=== PATIENT | female | born 1990 | race Hispanic/Latino ===

== ENCOUNTER 2020-11-04 07:41 | Outpatient (CLI) | payer OTHER ==
[2020-11-04 08:26] VITALS: BP 121/82
== END 2020-11-04 11:00 | disposition home or self-care (01) ==
LOC: TRG 07:41 → APU 07:43 → TRG 11:00
DX: O47.1 False labor at or after 37 completed weeks of gestation (principal); Z3A.37 37 weeks gestation of pregnancy
CPT/HCPCS: 59025

== ENCOUNTER 2020-11-09 14:14 | Inpatient (IN) | payer OTHER ==
[2020-11-09] MEDS ORDERED: ePHEDrine SULFATE 50 MG/1 ML INJ IV PRN (15:29)
[2020-11-09] MEDS ORDERED: TERBUTALINE 1 MG/1 ML INJ SUB-Q PRN (15:29)
[2020-11-09] MEDS ORDERED: MINERAL OIL 30 ML ORAL LIQD PO PRN (15:29)
[2020-11-09] MEDS ORDERED: OXYTOCIN DRIP 30,000 MILLIUNITS/500 ML BAG IV ONE (15:55)
[2020-11-09] MEDS: LACTATED RINGERS 1,000 ML IV SCH ×2 (16:00→22:51)
[2020-11-09] MEDS ORDERED: OXYTOCIN DRIP 30 UNITS/500 ML BAG IV SCH ×2 (16:00→17:00)
[2020-11-09] MEDS ORDERED: LIDOCAINE (2%) 20 MG/1 ML VIAL 20 ML MDV INFILTRATI ONE ×2 (16:29→23:06)
[2020-11-09 16:48] LABS: Hematocrit 36.9 % (30.3-42.9); Hemoglobin 12.1 gm/dl (10.1-14.3); Mean Corpuscular HGB Conc 33 % (30-34); Mean Corpuscular Volume 85 fl (79-97); Platelet Count 207 K/mm3 (140-440); Red Blood Count 4.32 M/mm3 (3.65-5.03); Red Cell Distribution Width 13.9 % (13.2-15.2)
[2020-11-09] MEDS ORDERED: AMPICILLIN/NS 2 GM/100 ML 2 GM/100 ML BAG IV ONE (17:00)
--- NOTE | 2020-11-09 19:33 | History and Physical Report ---
History of Present Illness Date of examination: 11/09/20 Date of admission: 11/09/20 14:15 Chief complaint: Pt with c/o uc times several hours History of present illness: 30 y/o white female presents to [facility] @ 38.4 wks with c/o uc times several hours. She denies LOF or VB and admits to adq FM. Pt initiated her pnc @ 9wks 5d @ [facility] office. She was co managed by [facility] r/t obesity and placenta previa which resolved. She has a hx of neurotic depression and anxiety.Pt was found to be in labor and was admitted to L&D for delivery. Labs: A pos AB screen neg Rubella -Immune RPR - NR HIV- Neg PLT 228 H&H 13.7/40.5% 1 HR GTT-105 VDRL- NR GBS- pos Past History Past Medical History: other (neurotic depression, anxiety) Past Surgical History: cholecystectomy, tonsillectomy Family/Genetic History: diabetes Social history: single, full code - Obstetrical History Expected Date of Delivery: 11/20/20 Actual Gestation: 38 Week(s) 3 Day(s) : 6 Para: 3 Hx # Term Pregnancies: 3 Number of Pregnancies: 0 Spontaneous Abortions: 2 Induced : 0 Number of Living Children: 3 Medications and Allergies Allergies Allergy/AdvReac Type Severity Reaction Status Date / Time No Known Allergies Allergy Unverified 11/04/20 10:46 Active Meds: Active Medications Ephedrine Sulfate (Ephedrine Sulfate 50 Mg/1 Ml Inj) 10 mg IV Q2M PRN PRN Reason: Hypotension Oxytocin/Sodium Chloride (Pitocin/Ns 30 Unit/500ml) 30 units in 500 mls @ 2 mls/hr IV TITR LOUISA; Protocol Lactated Ringer's (Lactated Ringers) 1,000 mls @ 125 mls/hr IV DIRECT LOUISA Last Admin: 11/09/20 16:00 Dose: 125 mls/hr Documented by: Oxytocin/Sodium Chloride (Pitocin/Ns 30 Unit/500ml) 30 units in 500 mls @ 40 mls/hr IV TITR LOUISA; Protocol Ampicillin Sodium (Ampicillin/Ns 1 Gm/50 Ml) 1 gm in 50 mls @ 100 mls/hr IV Q4H LOUISA; Protocol Mineral Oil (Mineral Oil 30 Ml Oral Liqd) 30 ml PO QHS PRN PRN Reason: Constipation Terbutaline Sulfate (Terbutaline 1 Mg/1 Ml Inj) 0.25 mg SUB-Q ONCE PRN PRN Reason: Hyperstimulation/Hypertonicity Review of Systems All systems: negative Eyes: deferred Ears, nose, mouth and throat: deferred Breasts: normal - Vital Signs Vital signs: Vital Signs Pulse BP 110 H 146/90 11/09/20 14:36 11/09/20 14:36 Temp Pulse Resp BP Pulse Ox 98.3 F 77 16 126/73 11/09/20 15:20 11/09/20 19:02 11/09/20 15:20 11/09/20 19:02 - Physical Exam Breasts: Positive: normal Abdomen: Positive: normal appearance, soft, normal bowel sounds, other (gravid) Genitourinary (Female): Positive: normal external genitalia, normal perenium Vulva: both: normal Vagina: Positive: normal moisture Uterus: Positive: normal size, normal contour Adnexa: both: normal Anus/Rectum: Positive: normal perianal skin Extremities: Positive: normal - Obstetrical FHR: auscultation normal, category 1 Uterine Contraction Monitor Mode: External Cervical Dilatation: 6 Cervical Effacement Percentage: 50 station: -2 Uterine Contraction Pattern: Irregular Uterine Tone Measurement Phase: Resting Uterine Contraction Intensity: Mild Results Result Diagrams: 11/09/20 15:30 Abnormal lab results 11/09/20 Range/Units 15:30 WBC 13.7 H (4.5-11.0) K/mm3 All other labs normal. Assessment and Plan A: IUP@ 38.4 wks Obesity Neurotic depression and anxiety GBS pos p: Admit to L&D Continuous monitoring GBS protocal Anticipate - Patient Problems (1) Supervision of normal IUP (intrauterine ) in multigravida Current Visit: Yes Status: Acute (2) Positive GBS test Current Visit: Yes Status: Acute (3) Neurotic depression Current Visit: Yes Status: Acute (4) Anxiety Current Visit: Yes Status: Acute
[2020-11-09] MEDS ORDERED: AMPICILLIN/NS 1 GM/50 ML 1 GM/50 ML BAG IV SCH (20:00)
--- NOTE | 2020-11-10 00:16 | Procedure Note ---
OB Delivery Note - Delivery Date of Delivery: 11/09/20 Surgeon: ROXANNA RAMIREZ (Godfrey Franks [facility]) Estimated blood loss: 200cc - Vaginal Delivery presentation: vertex Delivery position: OA Intrapartum events: none Delivery induction: none Delivery augmentation: rupture of membranes, pitocin Delivery monitor: external FHT, external uterine Route of delivery: Delivery placenta: spontaneous Delivery cord: 3 umbilical vessels Episiotomy: none Delivery laceration: 1st degree Delivery repair: vicryl Anesthesia: none Delivery comments: Called to room for delivery. SVE 10/100/+1. Pushing began. in OA position of living viable male infant. Shoulders delivered spontaneously. Baby direct to maternal abdomen for skin to skin. Apgars 8/9.Delayed cord clamping until cessation of cord pulsation, clamped X2 and cut by partner. Placenta delivered spontaneously. 3VC and intact. FF@U-1 with fundal massage and IV Pitocin. Exploration of tears revealed 1st degree laceration which was repaired with 3-[address]-1. Mom and baby stable. EBL 200cc. Roxanna Ramirez [facility]/Godfrey Franks [facility] - A at 1 minute: 8 at 5 minutes: 9 Gender: Male (7 lbs 12 oz)
[2020-11-10] MEDS ORDERED: MAGNESIUM HYDROXIDE (MOM) ORAL LIQD UDC PO PRN (02:09)
[2020-11-10] MEDS ORDERED: ONDANSETRON 4 MG/2 ML INJ IV PRN (02:09)
[2020-11-10] MEDS ORDERED: diphenhydrAMINE 25 MG CAP PO PRN (02:09)
[2020-11-10] MEDS ORDERED: LANOLIN/ZINC/DIMETHICONE (LANSINOH) 7 GM TP PRN (02:09)
[2020-11-10] MEDS ORDERED: PROMETHAZINE 25 MG RECT SUPP PR PRN (02:09)
[2020-11-10] MEDS ORDERED: WITCH HAZEL/ GLYCERIN PAD TP PRN (02:09)
[2020-11-10] MEDS ORDERED: PROMETHAZINE 25 MG TAB PO PRN (02:09)
[2020-11-10] MEDS: IBUPROFEN 600 MG TAB PO SCH ×3 (02:38→17:13)
--- NOTE | 2020-11-10 11:24 | Progress Note ---
Assessment and Plan A: PP Day #1 Stable P: Follow Routine Orders D/C home in the AM RTO in 6 Weeks Subjective - Subjective Date of service: 11/10/20 Patient reports: appetite normal, voiding normally, pain well controlled, flatus, ambulating normally : doing well, bottle feeding (and ) Objective - Vital Signs Latest vital signs: Vital Signs Temp Pulse Resp BP BP Pulse Ox 11/10/20 08:15 97.8 F 64 18 120/63 97 11/10/20 06:29 73 119/57 97 11/10/20 02:38 18 11/10/20 02:22 98.6 F 11/10/20 01:55 91 H 113/70 96 11/10/20 01:27 83 97 11/10/20 01:22 70 98 11/10/20 01:17 80 97 11/10/20 01:16 71 128/60 11/10/20 01:12 72 97 11/10/20 01:07 88 96 11/10/20 01:02 78 97 11/10/20 01:01 68 137/67 11/10/20 00:57 86 97 11/10/20 00:52 90 97 11/10/20 00:47 90 97 11/10/20 00:46 81 136/68 11/10/20 00:42 87 97 11/10/20 00:37 72 97 11/10/20 00:32 76 97 11/10/20 00:31 75 146/72 11/10/20 00:27 75 97 11/10/20 00:22 81 98 11/10/20 00:17 82 143/75 98 11/10/20 00:12 85 97 11/10/20 00:07 85 98 11/10/20 00:02 85 98 11/09/20 23:57 92 H 98 11/09/20 23:52 90 99 11/09/20 23:47 90 99 11/09/20 23:42 84 98 11/09/20 23:41 84 149/68 11/09/20 23:37 94 H 97 11/09/20 23:32 94 H 98 11/09/20 23:27 79 98 11/09/20 23:22 88 98 11/09/20 23:17 84 97 11/09/20 23:12 90 99 11/09/20 23:07 85 98 11/09/20 23:02 79 98 11/09/20 22:57 88 99 11/09/20 22:52 88 98 11/09/20 22:47 89 97 11/09/20 22:42 81 98 11/09/20 22:37 86 98 11/09/20 22:32 90 98 11/09/20 22:27 83 97 11/09/20 22:22 87 98 11/09/20 22:17 93 H 98 11/09/20 22:12 85 98 11/09/20 22:07 93 H 99 11/09/20 22:02 89 98 11/09/20 21:57 90 97 11/09/20 21:52 91 H 97 11/09/20 21:47 92 H 98 11/09/20 21:42 97 H 98 11/09/20 21:37 94 H 98 11/09/20 21:32 91 H 98 11/09/20 21:27 86 98 11/09/20 21:22 92 H 98 11/09/20 21:17 87 98 11/09/20 21:12 85 98 11/09/20 21:07 85 98 11/09/20 21:02 86 97 11/09/20 20:57 83 97 11/09/20 20:52 91 H 98 11/09/20 20:47 83 97 11/09/20 20:42 87 98 11/09/20 20:37 87 98 11/09/20 20:32 87 98 11/09/20 20:27 89 97 11/09/20 20:22 94 H 97 11/09/20 20:17 89 97 11/09/20 20:12 84 97 11/09/20 20:07 90 98 11/09/20 20:03 83 L 11/09/20 20:02 78 L 11/09/20 19:32 97.2 F L 22 11/09/20 19:02 77 126/73 11/09/20 18:07 89 128/70 11/09/20 16:13 125 H 138/72 11/09/20 15:46 120 H 132/71 11/09/20 15:21 107 H 118/86 11/09/20 15:20 98.3 F 107 H 16 118/86 11/09/20 14:36 110 H 146/90 Intake and Output 11/09/20 11/10/20 11/10/20 22:59 06:59 14:59 Intake Total 861.617 240 Output Total 200 Balance 861.617 -200 240 Intake: IV 861.617 Lactated Ringers 1,000 ml 856.25 @ 125 mls/hr IV DIRECT LOUISA Rx#:[id number] PITOCin/NS 30 UNIT/500ML 5.367 30 units In 500 ml @ 2 mls/hr IV TITR LOUISA Rx#: [id number] Oral 240 Output: Urine 200 Void 200 Other: Total, Intake Amount 240 Total, Output Amount 200 # Voids Void 1 Weight 111.13 kg Estimated Blood Loss 200 - Exam Breasts: Present: normal Cardiovascular: Present: Regular rate Lungs: Present: Clear to auscultation, Normal air movement Abdomen: Present: normal appearance, soft, normal bowel sounds Uterus: Present: normal, firm, fundal height below umbilicus Extremities: Present: normal - Labs Labs: Abnormal lab results 11/09/20 Range/Units 15:30 WBC 13.7 H (4.5-11.0) K/mm3
--- NOTE | 2020-11-10 11:26 | Discharge Summary ---
Providers - Providers Date of Admission: 11/09/20 14:15 Date of discharge: 11/11/20 Attending physician: CHIP GONZALEZ MD Primary care physician: CHIP GONZALEZ MD Hospitalization Reason for admission: active labor Delivery: Episiotomy: none Laceration: 1st degree Other procedures: none complications: none Discharge diagnosis: IUP at term delivered [place] baby: male Condition at discharge: Good Disposition: DC-01 TO HOME OR SELFCARE Plan - Provider Discharge Summary Activity: routine, no sex for 6 weeks, no heavy lifting 4 weeks, no strenuous exercise Diet: routine Instructions: routine Additional instructions: [] Smoking cessation referral if applicable(refer to patient education folder for contact #) [] Refer to [facility] Booklet Call your doctor immediately for: * Fever > 100.5 * Heavy vaginal bleeding ( >1 pad per hour) * Severe persistent headache * Shortness of breath * Reddened, hot, painful area to leg or breast * Drainage or odor from incision. * Keep incision clean and dry at all times and follow doctor's instructions regarding bathing/showering - Follow up plan Follow up: CHIP GONZALEZ MD [Primary Care Provider] - 6 Weeks
[2020-11-10 13:47] LABS: Hematocrit 34.4 % (30.3-42.9); Hemoglobin 11.2 gm/dl (10.1-14.3)
[2020-11-11] MEDS: IBUPROFEN 600 MG TAB PO SCH ×2 (03:12→09:16)
[2020-11-11 09:59] VITALS: BP 130/81
== END 2020-11-11 10:40 | disposition home or self-care (01) | DRG 775 ==
LOC: APU 14:14 → TRG 14:14 → LD 14:15 → TRG 16:02 → OB 11-10 01:52
PROC: 10E0XZZ Delivery of Products of Conception, External Approach (ICD-10-PCS; principal; 2020-11-09)
PROC: 0HQ9XZZ Repair Perineum Skin, External Approach (ICD-10-PCS; 2020-11-09)
DX: O99.824 Streptococcus B carrier state complicating childbirth (principal); O99.344 Other mental disorders complicating childbirth; F32.9 Major depressive disorder, single episode, unspecified; F41.9 Anxiety disorder, unspecified; O99.214 Obesity complicating childbirth; E66.9 Obesity, unspecified; O70.0 First degree perineal laceration during delivery; Z3A.38 38 weeks gestation of pregnancy; Z37.0 Single live birth; Z90.49 Acquired absence of other specified parts of digestive tract
CPT/HCPCS: 36415; 59025; 85014; 85018; 85027; 86592; 86850; 86900; 86901; 96360; 96361; 96365; 96366; G0378; J0290; J2590; J7120; U0003